=== PATIENT | female | born 1950 | race Caucasian/White ===

== ENCOUNTER 2018-08-20 11:59 | Outpatient (CLI) | payer OTHER, SELFPAY ==
[2018-08-20 13:00] LABS: HCT 41.2 % (36.0-46.0); Mean Corp. HGB Concentration 31.6 g/dL (32.0-36.0); Mean Corpuscular Hemoglobin 28.1 pg (27.0-33.0); Mean Corpuscular Volume 89.2 fL (80-95); Mean Platelet Volume 9.5 fL (8.0-11.0); Platelet Count 460 x1000/uL (130-400); RBC 4.62 m/cumm (4.00-5.20); White Blood Cell Count 6.26 k/cumm (4.4-10.8)
[2018-08-20 13:40] LABS: ALT 27 U/L (12-78); AST 19 U/L (15-37); Albumin 3.9 g/dL (3.4-5.0); Alkaline Phosphatase 127 U/L (46-116); Anion Gap 11.3 mmol/L (3-11); BUN 11 mg/dL (7-18); Bilirubin, Total 0.3 mg/dL (0.2-1.0); CO2 27.7 mmol/L (21.0-32.0); CREATININE 0.69 mg/dL (0.55-1.02); Calcium 9.4 mg/dL (8.5-10.1); Chloride 104 mmol/L (98-107); Glucose 90 mg/dL (70-100); Potassium 4.3 mmol/L (3.5-5.1); Sodium 143 mmol/L (136-145); TSH (W/Ref FT4) 2.36 uIU/mL (0.358-3.74); Total Protein 7.4 g/dL (6.4-8.2)
[2018-08-21 20:00] LABS: Cholesterol 281 mg/dL (50-200); HDL Cholesterol 58 mg/dL (40-60); LDL CHOLESTEROL 203 mg/dL (<100); Triglyceride 92 mg/dL (30-150)
== END 2018-08-20 12:19 ==
PROVIDERS: PCP Nurse Practitioner; Visit Provider Nurse Practitioner
DX: E05.90 Thyrotoxicosis, unspecified without thyrotoxic crisis or storm (principal); I10 Essential (primary) hypertension; E78.5 Hyperlipidemia, unspecified
CPT/HCPCS: 36415; 80053; 80061; 83721; 85027; 84443

== ENCOUNTER 2018-10-10 00:50 | Outpatient (CLI) | payer OTHER, SELFPAY ==
--- NOTE | 2018-10-10 11:00 | DI.MAMMO_ITS ---
SYMPTOMS/DIAGNOSIS: SCREENING, Z12.31 MAMMOGRAM: Mammograms were interpreted according to the usual protocol including computer analysis with CAD system, tomosynthesis and C view imaging. Comparison with prior examinations. Breast density C. There are post surgical changes of a left breast biopsy. No suspicious masses or microcalcifications are seen. Overall there does not appear to be any significant change compared to the prior examinations. IMPRESSION: No evidence for malignancy. Yearly mammography is recommended. Category 2. MQSA ASSESSMENT OF FINDINGS: Negative with benign findings. Category 2. Patient will receive a letter notifying them of these results. Bi-RADS category C. The breasts are heterogeneously dense, which may obscure small masses.
== END 2018-10-10 01:10 ==
PROVIDERS: PCP Nurse Practitioner; Visit Provider Nurse Practitioner
DX: Z12.31 Encounter for screening mammogram for malignant neoplasm of breast (principal)
CPT/HCPCS: 77063; 77067

== ENCOUNTER 2018-12-17 14:41 | Outpatient (CLI) | payer OTHER, SELFPAY ==
[2018-12-17 15:13] LABS: HCT 41.3 % (36.0-46.0); HGB 13.3 g/dL (12.0-15.5); Mean Corp. HGB Concentration 32.2 g/dL (32.0-36.0); Mean Corpuscular Hemoglobin 27.8 pg (27.0-33.0); Mean Corpuscular Volume 86.4 fL (80-95); Mean Platelet Volume 8.9 fL (8.0-11.0); Platelet Count 515 x1000/uL (130-400); RBC 4.78 m/cumm (4.00-5.20); RBC Distribution Width 14.6 % (11.7-14.6); White Blood Cell Count 6.73 k/cumm (4.4-10.8)
[2018-12-17 16:39] LABS: ESR 63 MM/HR (0-30)
[2018-12-17 16:43] LABS: ALT 23 U/L (12-78); AST 22 U/L (15-37); Albumin 3.7 g/dL (3.4-5.0); Alkaline Phosphatase 118 U/L (46-116); Anion Gap 11.9 mmol/L (3-11); BUN 12 mg/dL (7-18); Bilirubin, Total 0.3 mg/dL (0.2-1.0); CO2 28.1 mmol/L (21.0-32.0); CREATININE 0.86 mg/dL (0.55-1.02); Calcium 9.9 mg/dL (8.5-10.1); Chloride 99 mmol/L (98-107); Cholesterol 182 mg/dL (50-200); Glucose 99 mg/dL (70-100); HDL Cholesterol 55 mg/dL (40-60); LDL CHOLESTEROL 111 mg/dL (<100); Potassium 3.3 mmol/L (3.5-5.1); Sodium 139 mmol/L (136-145); TSH (W/Ref FT4) 1.89 uIU/mL (0.358-3.74); Total Protein 7.6 g/dL (6.4-8.2); Triglyceride 76 mg/dL (30-150)
[2018-12-17 17:15] LABS: C-Reactive Protein 4.69 mg/dL (0.0-0.3)
== END 2018-12-17 15:01 ==
PROVIDERS: PCP Nurse Practitioner; Visit Provider Nurse Practitioner
DX: E05.90 Thyrotoxicosis, unspecified without thyrotoxic crisis or storm (principal); R19.7 Diarrhea, unspecified; K51.90 Ulcerative colitis, unspecified, without complications; I10 Essential (primary) hypertension; E78.5 Hyperlipidemia, unspecified
CPT/HCPCS: 36415; 80053; 80061; 83721; 85027; 85652; 84443; 86140

== ENCOUNTER 2018-12-18 08:12 | Outpatient (CLI) | payer OTHER, SELFPAY ==
--- NOTE | 2018-12-18 12:12 | DI.CT_ITS ---
SYMPTOMS/DIAGNOSIS: PAIN, DIARRHEA, ULCERATIVE COLITIS, R19.7, R10.9, K51.90 CT OF THE ABDOMEN AND PELVIS: There are no prior comparison exams. Images were performed from the lung bases through the ischial tuberosities after IV and oral contrast. There is a mild pectus excavatum deformity. The heart size is normal. Mild emphysematous changes and scarring are noted at the lung bases. There is wall thickening of the terminal ileum, which may represent Crohn's disease. The appendix appears normal. The colon contains contrast up to the hepatic flexure. The remaining colon appears somewhat fluid filled. No colonic wall thickening is seen. There are enlarged right lower quadrant lymph nodes, presumably reactive. There is a tiny liver cyst. The gallbladder, spleen, adrenals, pancreas and kidneys are unremarkable. The urinary bladder is nearly empty. The uterus and ovaries are unremarkable. Degenerative changes and scoliosis are seen in the spine. The aorta shows calcification and is normal in diameter. IMPRESSION: Edema in the wall of the terminal ileum, which could be secondary to inflammatory or infectious causes. There is no wall thickening involving the colon, although the colon is fluid filled.
[2018-12-18] MEDS: Omnipaque 350 MG/ML 100 ML BTL IJ (13:37)
== END 2018-12-18 08:32 ==
PROVIDERS: PCP Nurse Practitioner; Visit Provider Nurse Practitioner
DX: R10.9 Unspecified abdominal pain (principal); R19.7 Diarrhea, unspecified; K51.80 Other ulcerative colitis without complications; K63.89 Other specified diseases of intestine
CPT/HCPCS: 74177; J3490

== ENCOUNTER 2019-07-16 00:38 | Outpatient (CLI) | payer OTHER, SELFPAY ==
--- NOTE | 2019-07-16 11:22 | DI.RAD_ITS ---
EXAM: XR KNEE RT 3V AP,LAT,FRANNY INDICATION: INFLAMMATORY ARTHROPATHY M19.90. COMPARISON: XR KNEE LT 3V AP,LAT,FRANNY from 07/16/2019 TECHNIQUE: 2D digital imaging was performed. FINDINGS: The bony structures are normally mineralized. There is mild narrowing of the medial tibiofemoral join t compartment and mild periarticular bony spurring is identified. There is no evidence of a joint ef fusion. IMPRESSION: Mild bilateral DJD is noted.
--- NOTE | 2019-07-16 11:22 | DI.RAD_ITS ---
EXAM: XR KNEE LT 3V AP,LAT,FRANNY INDICATION: INFLAMMATORY ARTHROPATHY M19.90. COMPARISON: No exams were available for comparison TECHNIQUE: 2D digital imaging was performed. FINDINGS: The bony structures are normally mineralized. Minimal narrowing of the medial tibiofemoral joint is e vident and very mild periarticular spurring is identified. There is no evidence of a joint effusion. IMPRESSION: Findings consistent with mild DJD.
--- NOTE | 2019-07-16 11:24 | DI.RAD_ITS ---
EXAM: XR ARTHRITIS SERIES INDICATION: INFLAMMATORY ARTHROPATHY M19.90. COMPARISON: No exams were available for comparison TECHNIQUE: 2D digital imaging was performed. FINDINGS: The bony structures are normally mineralized. Severe DJD is noted involving the interphalangeal join ts bilaterally. There are no bony erosions or periarticular calcifications. The carpal bones and in tercarpal joints are intact bilaterally. IMPRESSION: Severe degenerative changes involving the interphalangeal joints is demonstrated. There is nothing specific on the examination to suggest inflammatory joint disease.
--- NOTE | 2019-07-16 11:49 | DI.RAD_ITS ---
EXAM: XR SACROILIAC JOINTS INDICATION: INFLAMMATORY ARTHROPATHY M19.90, OSTEOARTHRITIS. COMPARISON: No exams were available for comparison TECHNIQUE: 2D digital imaging was performed. FINDINGS: Aside from mild degenerative changes the SI joints appear intact.
--- NOTE | 2019-07-16 11:50 | DI.RAD_ITS ---
EXAM: XR LUMBAR SPINE COMPLETE INDICATION: INFLAMMATORY ARTHROPATHY M19.90. COMPARISON: No exams were available for comparison TECHNIQUE: 2D digital imaging was performed. FINDINGS: A moderate levo roto scoliotic deformity of the lumbar spine is demonstrated. T11-T12 and T12-L1 dis c narrowing is demonstrated. There are mild endplate hypertrophic changes. Also there is narrowing o f the L3-4 and L4-5 disc interspace with a vacuum phenomenon identified at L4-5. Prominent hypertrop hic spurring involving the L4-5 level is identified. Facet joint DJD is most advanced at L3 through S1. There is no evidence of spondylolysis or spondylo listhesis. The pedicles, spinous and transvers e processes appear intact. The SI joints are intact. IMPRESSION: Degenerative changes involving the lumbosacral spine as described above.
== END 2019-07-16 00:58 ==
PROVIDERS: PCP Nurse Practitioner; Visit Provider Internal Medicine
DX: M19.90 Unspecified osteoarthritis, unspecified site (principal); M53.3 Sacrococcygeal disorders, not elsewhere classified; M19.049 Primary osteoarthritis, unspecified hand; M54.5 Low back pain; M51.37 Other intervertebral disc degeneration, lumbosacral region; M25.562 Pain in left knee; M17.0 Bilateral primary osteoarthritis of knee; M25.561 Pain in right knee
CPT/HCPCS: 73562; 72110; 72202; 73120

== ENCOUNTER 2019-09-30 11:41 | Outpatient (CLI) | payer OTHER, SELFPAY ==
[2019-09-30 12:28] LABS: HCT 43.4 % (36.0-46.0); HGB 14.2 g/dL (12.0-15.5); Mean Corp. HGB Concentration 32.7 g/dL (32.0-36.0); Mean Corpuscular Hemoglobin 30.5 pg (27.0-33.0); Mean Corpuscular Volume 93.3 fL (80-95); Mean Platelet Volume 9.1 fL (8.0-11.0); Platelet Count 456 x1000/uL (130-400); RBC 4.65 m/cumm (4.00-5.20); RBC Distribution Width 13.6 % (11.7-14.6); White Blood Cell Count 6.29 k/cumm (4.4-10.8)
[2019-09-30 13:18] LABS: ALT 29 U/L (14-59); AST 15 U/L (15-37); Albumin 4.1 g/dL (3.4-5.0); Alkaline Phosphatase 94 U/L (46-116); Anion Gap 8.1 mmol/L (3-11); BUN 14 mg/dL (7-18); Bilirubin, Total 0.4 mg/dL (0.2-1.0); CO2 28.9 mmol/L (21.0-32.0); CREATININE 0.66 mg/dL (0.55-1.02); Calcium 9.2 mg/dL (8.5-10.1); Calculated LDL 173 mg/dL; Chloride 106 mmol/L (98-107); Cholesterol 248 mg/dL (<200); Glucose 89 mg/dL (74-106); HDL Cholesterol 56 mg/dL (40-60); Potassium 4.4 mmol/L (3.5-5.1); Sodium 143 mmol/L (136-145); TSH (W/Ref FT4) 1.93 uIU/mL (0.36-3.74); Total Protein 7.4 g/dL (6.4-8.2); Triglyceride 99 mg/dL (<150)
== END 2019-09-30 12:01 ==
PROVIDERS: PCP Nurse Practitioner; Visit Provider Nurse Practitioner
DX: D47.3 Essential (hemorrhagic) thrombocythemia (principal); E78.5 Hyperlipidemia, unspecified; I10 Essential (primary) hypertension; E05.90 Thyrotoxicosis, unspecified without thyrotoxic crisis or storm
CPT/HCPCS: 36415; 80053; 80061; 85027; 84443

== ENCOUNTER 2019-10-21 00:43 | Outpatient (CLI) | payer OTHER, SELFPAY ==
--- NOTE | 2019-10-21 12:52 | DI.MAMMO_ITS ---
EXAM: MAMMO SCREENING CLINICAL HISTORY: SCREENING Z12.39 TECHNIQUE: Mammograms were interpreted according to the usual protocol including computer analysis w [employer] CAD system, tomosynthesis and C-view imaging. COMPARISON: 2013 through 2018 FINDINGS: The breasts are composed of heterogeneously dense fibroglandular densities, Breast Density category C . No suspicious masses or suspicious microcalcifications are seen. Post biopsy scarring is again noted in the left breast. No skin thickening or abnormal axillary lymph nodes are seen. There has been no significant change from prior exams. IMPRESSION: BIRADS category 2 negative mammogram with benign findings. Yearly screening mammography is recommend ed. BI-RADS Cat 2 - Benign Findings Breast Density - Category C - Heterogeneously dense BREAST DENSITY: The mammogram demonstrates the patient's breast tissue is dense. Dense breast tissue is very common and is not abnormal but dense breast tissue can make it harder to find cancer on a ma mmogram. Also, dense breast tissue may increase their breast cancer risk. This information about the result of the mammogram report was provided to the patient to raise their awareness. Use this report when you speak with the patient about their risks for breast cancer, which includes their family hist ory. At that time, you may recommend for more screening tests (Ultrasound or MRI) as they might be us eful based on their risk. A negative radiographic report should not delay biopsy if a dominant or clinically suspicious mass is present. Up to ten percent of cancers are not identified on mammography. A negative report may reinforce clinical impression. Adenosis and dense breasts may obscure an underlying neoplasm. False positive reports average 6 to 10%.
== END 2019-10-21 01:03 ==
PROVIDERS: PCP Nurse Practitioner; Visit Provider Nurse Practitioner
DX: Z12.31 Encounter for screening mammogram for malignant neoplasm of breast (principal)
CPT/HCPCS: 77063; 77067

== ENCOUNTER 2020-04-01 01:29 | Outpatient (CLI) | payer OTHER, SELFPAY ==
[2020-04-01 10:54] LABS: HCT 43.3 % (36.0-46.0); HGB 14.3 g/dL (12.0-15.5); Mean Corpuscular Hemoglobin 30.8 pg (27.0-33.0); Mean Corpuscular Volume 93.1 fL (80-95); Mean Platelet Volume 9.1 fL (8.0-11.0); Platelet Count 422 x1000/uL (130-400); RBC 4.65 m/cumm (4.00-5.20); RBC Distribution Width 13.9 % (11.7-14.6); White Blood Cell Count 6.01 k/cumm (4.4-10.8)
[2020-04-01 11:48] LABS: ALT 47 U/L (14-59); AST 26 U/L (15-37); Albumin 4.1 g/dL (3.4-5.0); Alkaline Phosphatase 95 U/L (46-116); Anion Gap 8.3 mmol/L (3-11); BUN 14 mg/dL (7-18); Bilirubin, Total 0.3 mg/dL (0.2-1.0); CO2 25.7 mmol/L (21.0-32.0); CREATININE 0.71 mg/dL (0.55-1.02); Calcium 9.6 mg/dL (8.5-10.1); Calculated LDL 162 mg/dL (<100); Chloride 105 mmol/L (98-107); Cholesterol 233 mg/dL (<200); Glucose 98 mg/dL (74-106); HDL Cholesterol 49 mg/dL (40-60); Potassium 4.4 mmol/L (3.5-5.1); Sodium 139 mmol/L (136-145); Total Protein 7.2 g/dL (6.4-8.2); Triglyceride 113 mg/dL (<150)
[2020-04-01 12:00] LABS: TSH (W/Ref FT4) 1.38 uIU/mL (0.36-3.74)
== END 2020-04-01 01:49 ==
PROVIDERS: PCP Nurse Practitioner; Visit Provider Nurse Practitioner
DX: E05.90 Thyrotoxicosis, unspecified without thyrotoxic crisis or storm (principal); I10 Essential (primary) hypertension; R53.83 Other fatigue; E78.5 Hyperlipidemia, unspecified
CPT/HCPCS: 36415; 80053; 80061; 85027; 84443

== ENCOUNTER 2020-11-19 03:48 | Outpatient (CLI) | payer OTHER, SELFPAY ==
--- NOTE | 2020-11-19 12:54 | DI.MAMMO_ITS ---
EXAM: MAMMO SCREENING CLINICAL HISTORY: screening,Z12.39 TECHNIQUE: Mammograms were interpreted according to the usual protocol including computer analysis w [employer] CAD system, tomosynthesis and C-view imaging. COMPARISON: 2013 through 2019 FINDINGS: The breasts are composed of heterogeneously dense fibroglandular densities, Breast Density category C . No suspicious masses or suspicious microcalcifications are seen. No skin thickening or abnormal axillary lymph nodes are seen. Scarring is again noted in the superio r left breast from previous biopsy. There has been no significant change from prior exams. IMPRESSION: BI-RADS Cat 2 - Benign Findings Yearly screening mammography is recommended. Breast Density Category C, heterogeneously Dense. The mammogram demonstrates the patient's breast tissue is dense. Dense breast tissue is very common a nd is not abnormal but dense breast tissue can make it harder to find cancer on a mammogram. Also, de nse breast tissue may increase breast cancer risk. This information about the result of the mammogram report was provided to the patient to raise their awareness. Use this report when you speak with the patient about their risks for breast cancer, which includes their family history. At that time, you may recommend additional screening tests (Ultrasound or MRI) as they might be useful based on their r isk. A negative radiographic report should not delay biopsy if a dominant or clinically suspicious mass is present. Up to ten percent of cancers are not identified on mammography. A negative report may reinforce clinical impression. Adenosis and dense breasts may obscure an underlying neoplasm. False positive reports average 6 to 10%.
== END 2020-11-19 04:08 ==
PROVIDERS: PCP Internal Medicine; Visit Provider Internal Medicine
DX: Z12.31 Encounter for screening mammogram for malignant neoplasm of breast (principal)
CPT/HCPCS: 77063; 77067

== ENCOUNTER 2021-02-22 02:47 | Outpatient (CLI) | payer OTHER, SELFPAY ==
[2021-02-22 12:40] LABS: Absolute Basophil Count 0.07 10^3/uL (0.0-0.2); Absolute Eosinophil Count 0.31 10^3/uL (0.0-0.7); Absolute Lymphocyte Count 1.31 10^3/uL (1.2-3.4); Absolute Monocyte Count 0.54 10^3/uL (0.1-0.8); Absolute Neutrophil Count 3.31 10^3/uL (1.2-6.7); Basophils % 1.3; Eosinophils % 5.6; HCT 42.4 % (36.0-46.0); HGB 13.6 g/dL (11.2-15.7); Lymphocytes % 23.6; MCH 29.5 pg (27.0-33.0); MCHC 32.1 % (32.0-36.0); MPV 10.1 fL (8.0-11.0); Monocytes % 9.7; Neutrophils % 59.8; Nucleated RBC 0 %; Platelet Count 426 10^3/uL (130-400); RBC 4.61 10^6/uL (3.93-5.22); RDW 13.7 % (11.7-14.6); RDW-SD 46.5 fL; WBC 5.54 10^3/uL (4.4-10.8)
[2021-02-22 12:45] LABS: ESR 30 mm/hr (0-30)
[2021-02-22 13:03] LABS: ALT 34 U/L (14-59); AST 15 U/L (15-37); Alkaline Phosphatase 99 U/L (46-116); Anion Gap 10.1 mmol/L (3-11); BUN 16 mg/dL (7-18); Bilirubin, Total 0.3 mg/dL (0.2-1.0); CO2 26.9 mmol/L (21.0-32.0); CREATININE 0.8 mg/dL (0.55-1.02); Calcium 9.3 mg/dL (8.5-10.1); Calculated LDL 163 mg/dL (<100); Chloride 106 mmol/L (98-107); Cholesterol 241 mg/dL (<200); Glucose 95 mg/dL (74-106); HDL Cholesterol 52 mg/dL (40-60); Potassium 4.4 mmol/L (3.5-5.1); Sodium 143 mmol/L (136-145); TSH 1.36 uIU/mL (0.36-3.74); Total Protein 7.5 g/dL (6.4-8.2); Triglyceride 134 mg/dL (<150)
[2021-02-22 13:20] LABS: FREE T4 0.83 ng/dL (0.76-1.46)
== END 2021-02-22 02:48 | disposition home or self-care (01) ==
LOC: LOS 02:47
PROVIDERS: PCP Nurse Practitioner Family; Visit Provider Nurse Practitioner Family
DX: R51.9 Headache, unspecified (principal); R53.83 Other fatigue; E78.5 Hyperlipidemia, unspecified; E05.90 Thyrotoxicosis, unspecified without thyrotoxic crisis or storm
CPT/HCPCS: 36415; 80053; 80061; 85652; 84439; 84443; 85025; 86140

== ENCOUNTER 2021-04-06 02:02 | Outpatient (CLI) | payer OTHER, SELFPAY ==
--- NOTE | 2021-04-06 08:00 | DI.DEXA_ITS ---
Exam(s) XR DEXA BONE DENSITY W/WO TUTU EXAM: XR DEXA BONE DENSITY W/WO TUTU CLINICAL HISTORY: reassess bone density,OSTEOPOROSIS, M81.0 TECHNIQUE: Routine DEXA evaluation of the lumbar spine, hip, or forearm. COMPARISON: CR XR LUMBAR SPINE COMPLETE from 07/16/2019 FINDINGS: Performed on a Hologic unit. Lateral image: No compression fracture evident. Lumbar Spine total T-score: -0.4 Hip total T-score:-1.4 Independent reading at the level of the femoral neck yields a T-score of -2.0 Forearm total T-score: -0.8 IMPRESSION: Bone mineral density measures in the osteopenia range. Fracture risk is moderate. Note: Any spine fracture indicates 5x risk for subsequent spine fracture and 2x risk for subsequent h ip fracture. World Health Organization criteria for BMD interpretation classify patients: Normal...... T- Score at or above -1.0 Osteopenic... T- Score between -1.0 and -2.5 Osteoporosis... T-Score at or below -2.5
== END 2021-04-06 02:22 ==
PROVIDERS: PCP Nurse Practitioner Family; Visit Provider Nurse Practitioner Family
DX: R93.7 Abnormal findings on diagnostic imaging of other parts of musculoskeletal system; M81.0 Age-related osteoporosis without current pathological fracture
CPT/HCPCS: 77080

== ENCOUNTER 2021-12-08 18:22 | Outpatient (REF) | payer MEDICARE, SELFPAY ==
[2021-12-08 14:56] LABS: Abs Immature Grans 0.01 10^3/uL (0.0-0.06); Absolute Basophil Count 0.08 10^3/uL (0.0-0.2); Absolute Eosinophil Count 0.21 10^3/uL (0.0-0.7); Absolute Lymphocyte Count 1.19 10^3/uL (1.2-3.4); Absolute Monocyte Count 0.58 10^3/uL (0.1-0.8); Absolute Neutrophil Count 3.85 10^3/uL (1.2-6.7); Basophils % 1.4; Eosinophils % 3.5; HCT 43.2 % (36.0-46.0); HGB 13.7 g/dL (11.2-15.7); Immature Grans % 0.2; Lymphocytes % 20.1; MCH 28.9 pg (27.0-33.0); MCHC 31.7 % (32.0-36.0); MCV 91.1 fL (80-95); MPV 9.9 fL (8.0-11.0); Monocytes % 9.8; Nucleated RBC 0 %; Platelet Count 471 10^3/uL (130-400); RBC 4.74 10^6/uL (3.93-5.22); RDW 14.4 % (11.7-14.6); RDW-SD 48.4 fL; WBC 5.92 10^3/uL (4.4-10.8)
[2021-12-08 15:55] LABS: TSH 1.37 uIU/mL (0.36-3.74); Total Iron Binding Capacity 298 ug/dL (250-450)
[2021-12-08 16:35] LABS: Iron 73 ug/dL (50-170); T4 6.2 ug/mL (4.7-13.3); Transferrin Sat 24 % (15-50)
[2021-12-08 22:02] LABS: T3, Total 128 ng/dL (97-169)
== END 2021-12-08 18:23 | disposition home or self-care (01) ==
LOC: NCHCN 18:22
PROVIDERS: Visit Provider Nurse Practitioner Family
DX: E05.00 Thyrotoxicosis with diffuse goiter without thyrotoxic crisis or storm (principal); D47.3 Essential (hemorrhagic) thrombocythemia; G43.909 Migraine, unspecified, not intractable, without status migrainosus
CPT/HCPCS: 85027; 83540; 83550; 84436; 84443; 84480; 85025

== ENCOUNTER 2022-03-04 11:09 | Emergency (ER) | payer MEDICARE, SELFPAY ==
[2022-03-04 11:29] VITALS: BP 125/78; PULSE 80; RESP 16; TEMP 36.6; O2SAT 97
--- NOTE | 2022-03-04 12:00 | DI.CT_ITS ---
Exam(s) CT LUMBAR SPINE RECONS CT ABDOMEN PELVIS WO EXAM: CT ABDOMEN PELVIS WO CLINICAL HISTORY: abdominal pain and back pain. TECHNIQUE: Imaging Protocol: Axial computed tomography images with coronal and sagittal reformatted images were created and reviewed. Axial, coronal and sagittal images of the lumbar spine were reconstructed in bone algorithm. Oral: no COMPARISON: CT CT ABDOMEN PELVIS W from 12/18/[address] LUMBAR SPINE RECONS from 03/04/2022 FINDINGS: ABDOMEN: Lung Bases: Normal where visualized. Liver: Normal density. Stable tiny cyst right lobe no suspicious mass. Gallbladder and biliary tract: Status post cholecystectomy. No radiodense calculus or dilation. Pancreas: Normal density, no abnormal calcifications or inflammatory process. Spleen: Normal. Kidneys: Normal size, contour and axis. No radiodense stones or obstructive uropathy. No masses seen. Adrenal glands: No masses seen. Lymph nodes: Multiple abnormally enlarged retroperitoneal lymph nodes with a nearly confluent appeara nce extending from the diaphragm to the level of the proximal iliac chains.. Mildly enlarged mesente iliana lymph nodes are also present, greatest in the right lower quadrant.. Abdominal Aorta: Abdominal portion non-dilated. PELVIS: Bladder: Nearly empty and not well evaluated.. Bowel: No obstruction or bowel wall thickening. Peritoneal cavity: No ascites, collection or mesenteric inflammatory response. Reproductive organs: Within normal limits. Bones: The bones appear generally osteopenic. There is no evidence of compression fracture minimal S chmorl's nodes are seen. Degenerative disc changes greatest at L4-5, eccentric toward the right. Fa cet degenerative changes greatest at L5-S1. No lytic or blastic lesions. IMPRESSION: Extensive retroperitoneal adenopathy, highly suspicious for lymphoma. There also mildly enlarged mes enteric nodes greatest in the right lower quadrant. Degenerative changes are noted in the lumbar spine. There is no evidence of compression fractures, l ytic or blastic lesions. RADIATION DOSE DELIVERED: 947.63 mGy.cm Total DLP DATA REPOSITORY: All CT scans at this facility are submitted to the National Radiology Data Registry (NRDR) Dose Index Registry (DIR) with the [employer] (ACR). RADIATION OPTIMIZATION: All CT scans at this facility use at least one of these dose optimization te chniques: automated exposure control; mA and/or kV adjustment per patient size (includes targeted exa ms where dose is matched to clinical indication); or iterative reconstruction.
--- NOTE | 2022-03-04 12:13 | W.ED.GENAD ---
Discharge Plan Disposition Patient Disposition: HOME Condition: Stable Discharge Details Clinical Impression: Abdominal pain, Back pain, Enlarged lymph nodes, unspecified Primary Care Provider: MILA STERLING ED Provider: Domenico Ch Home Meds and New Rx's Prescriptions: Continued Ca-D3-mag rg-vhmq-ntx-jalil-bor [Calcium 600-D3 Plus (mag-zinc)] 600 mg calcium- 800 unit-50 mg tablet PO BID vitamin d 3 125 mg PO QDAY ezetimibe [Zetia] 10 mg tablet 10 mg PO DAILY Qty: 90 3RF gabapentin 300 mg capsule 300 mg PO TID PRN rosuvastatin 5 mg tablet 5 mg PO DAILY Qty: 90 4RF methimazole 5 mg tablet 5 mg PO DAILY Qty: 90 4RF escitalopram oxalate [Lexapro] 20 mg tablet 20 mg PO DAILY Qty: 90 4RF multivitamin tablet 1 tab PO DAILY meclizine 25 mg tablet 25 mg PO DAILY PRN vitamin B complex [B Complex 1] tablet 1 tab PO DAILY meloxicam 15 mg tablet 15 mg PO DAILY PRN (Reason: pain) Qty: 90 1RF topiramate 50 mg tablet 50 mg PO QHS Qty: 90 0RF Discharge Instructions Additional Instructions: Your cat scans did not show any emergent findings such as appendicitis or a bowel blockage. It did show you have enlarged lymph nodes in the abdomen that could be related to the diarrhea issues you have been having. Follow up as scheduled with the yarding engineer and also your primary care provider and inform them of the enlarged lymph nodes in your abdomen. You may need to see a hand presser for this if you feel more ill, have severe worsening pain or persistent vomit return to the emergency department you can take 1000mg tylenol every 6 hours up to 3000mg in a 24 hour period. The dosing for ibuprofen is 600mg every 6 hours as needed Medical Decision Making 71 yo female with hx of hld, hyperthyroidism, comes in with cc of abdominal discomfort for 5 days. She states she has had months of loose stools and is scheduled to see a yarding engineer this month for this issue. She states for 5 days she has a cramping sensation in her abdomen and sometimes discomfort in the lower back. She denies fevers, chills, chest pain, dyspnea, n/v. She appears well on exam, caox4 speaking clearly. She has tenderness without guarding in the mid and left lower abdomen and abdomen is soft. She has no cva tenderness, no rashes, no erythema of the back. No saddle anesthesia, normal sensation and pulses in legs. Her symptoms could be from gastroenteritis vs gastritis, no findings on exam or history to suggest cauda equina or spinal epidural abscess. She has normal vascular exam and history and physical makes entities such as dissection unlikely and given the IV contrast shortage do not feel IV contrast indicated and no severe pain to suggest mesenteric ischemia. Will obtain ct abdomen/pelvis to evaluate for diverituclitis and less likely kidney stone and recons of the lumbar spine given the back pain as well labs show no acute findings, has chronic thrombophilia and has seen hematology for this. CT shows no emergent findings, has nonspecific lymph node enlargement which could be from lymphoproliferative disease but also has had diarrhea so could be related to this. She is stable, minimal llq tenderness no guarding or rebound. Discussed with pt and she is stable for d/c. Did advise she should follow up with her pcp and GI which she has appointments for this month already. Return precautions given Differential Diagnosis Differential Diagnosis: diverituclitis, food sensitivity, kidney stone Medical Records Medical records reviewed: Yes I reviewed the patient's medical records. Imaging Data Radiologic Study: Attestation: I personally reviewed and interpreted this imaging study as follows: Imaging: CT Scan Radiologist's impression: ct abdomen/pelvis IMPRESSION: Retroperitoneal and mesenteric lymphadenopathy of concern for potential lymphoproliferative disease. Radiologic Study #2: Attestation: I personally reviewed and interpreted this imaging study as follows: Imaging: CT Scan Radiologist's impression: PROCEDURE INFORMATION: Exam: CT Lumbar Spine Without Contrast Exam date and time: 03/04/2022 12:42 PM Age: 71 years old Clinical indication: Low back pain TECHNIQUE: Imaging protocol: Computed tomography images of the lumbar spine without contrast. COMPARISON: CR XR LUMBAR SPINE COMPLETE 16/07/2019 11:27 FINDINGS: Bones/joints: Her lumbar vertebrae are all normal in height and alignment with no compression deformity. Schmorl's nodes are present in the endplates at multiple levels. Discs/Spinal canal/Neural foramina: There is a small disc bulge at L4-L5. No stenosis is seen. Other levels appear preserved. No severe spinal canal stenosis. No significant neural foraminal narrowing. Soft tissues: Unremarkable. IMPRESSION: No acute findings. Lab Data Lab results reviewed: Yes I reviewed the patient's lab results. HPI General Mode of arrival: ambulatory. Date/Time Provider Initiated Documentation: 03/04/22 11:13. Limitations to Documentation: no limitations. Information obtained by: patient. History of Present Illness 71 year old F presents to the emergency department with the chief complaint of generalized abdominal pain , described as moderate, Patient started experiencing this day(s) (5) and it has been constant. No relieving factors improve symptom(s), No exacerbating factors reported . Patient notes other (diarrhea for months, lower back pain). Patient did receive the following treatments prior to arrival, none Related Data Home Medications Medication Instructions Recorded Confirmed meclizine 25 mg tablet 25 mg PO DAILY PRN 07/31/18 08/22/21 multivitamin 1 tab PO DAILY 07/31/18 08/22/21 vitamin B complex (B Complex 1 1 tab PO DAILY 07/31/18 03/04/22 tablet) ezetimibe 10 mg tablet (Zetia) 10 mg PO DAILY #90 tabs 03/25/20 08/22/21 Ca 600 mg-D3 20 mcg-mag oxide 50 tab PO BID 08/11/20 08/22/21 dz-Gz-piqyvw-manganese-boron tablet (Calcium 600-D3 Plus (mag-zinc)) vitamin d 3 125 mg PO QDAY 08/11/20 08/22/21 gabapentin 300 mg capsule 300 mg PO TID PRN 02/22/21 03/04/22 escitalopram oxalate 20 mg tablet 20 mg PO DAILY #90 tabs 03/24/21 03/04/22 (Lexapro) methimazole 5 mg tablet 5 mg PO DAILY #90 tabs 03/24/21 03/04/22 rosuvastatin 5 mg tablet 5 mg PO DAILY #90 tabs 03/24/21 03/04/22 meloxicam 15 mg tablet 15 mg PO DAILY PRN pain #90 tabs 07/08/21 03/04/22 topiramate 50 mg tablet 50 mg PO QHS #90 tabs 08/31/21 03/04/22 Previous Rx's Medication Instructions Recorded ezetimibe 10 mg tablet (Zetia) 10 mg PO DAILY #90 tabs 03/25/20 escitalopram oxalate 20 mg tablet 20 mg PO DAILY #90 tabs 03/24/21 (Lexapro) methimazole 5 mg tablet 5 mg PO DAILY #90 tabs 03/24/21 rosuvastatin 5 mg tablet 5 mg PO DAILY #90 tabs 03/24/21 meloxicam 15 mg tablet 15 mg PO DAILY PRN pain #90 tabs 07/08/21 topiramate 50 mg tablet 50 mg PO QHS #90 tabs 08/31/21 Allergies Allergy/AdvReac Type Severity Reaction Status Date / Time No Known Allergies Allergy Verified 03/04/22 11:35 General Stated Complaint: Abd Prob MAURI: 3 Review of Systems All systems reviewed & are unremarkable except as noted in HPI and below Constitutional Constitutional: Denies chills, Denies fever(s) and Denies weakness Cardiovascular Cardiovascular: Denies chest pain and Denies dyspnea Respiratory Respiratory: Denies cough and Denies dyspnea Gastrointestinal Gastrointestinal: Denies nausea and Denies vomiting Genitourinary Genitourinary: Denies dysuria Integumentary/Breasts Skin/Breast: Denies rash Neurologic Neurologic: Denies weakness [facility] All Active Problems (Updated 03/04/22 @ 13:40 by Domenico Ch MD) Abdominal pain (Acute) Back pain (Acute) Enlarged lymph nodes, unspecified (Acute) Chronic daily headache (Acute) Osteopenia (Chronic) Dexa 03/2021 Hyperthyroidism (Chronic) Hyperlipidemia (Chronic) Thrombocytosis (Chronic) [facility] Hematology Fatigue (Chronic) Primary generalized (osteo)arthritis (Chronic) No rheumatologic disorder per [facility] Rheumatology Functional diarrhea (Chronic) Collagenous colitis (Chronic) Followed by [facility] GI Major depressive disorder (Chronic) Generalized anxiety disorder (Chronic) Osteoporosis (Chronic) Active Problem List Osteopenia (Chronic) Hyperthyroidism (Chronic) Hyperlipidemia (Chronic) Thrombocytosis (Chronic) Fatigue (Chronic) Primary generalized (osteo)arthritis (Chronic) Functional diarrhea (Chronic) Collagenous colitis (Chronic) Major depressive disorder (Chronic) Generalized anxiety disorder (Chronic) Osteoporosis (Chronic) Medical History Essential hypertension History of retinal detachment Leb Opth- left post macular hole, both eyes and Lensectomy 2017 Iron deficiency anemia Left retinal detachment Macular hole of both eyes S/p surgery, OD 2014, OS 2017 Surgical History S/P excision of fibroadenoma of breast Left breast S/P right rotator cuff repair Family History Mother , at 82 Heart disease Diabetes Hypertension Breast cancer Postmenopausal Asthma Hyperlipidemia Hyperthyroidism Father , from MVA No problems noted. Sister Hyperlipidemia Hypothyroidism Sister Alcohol abuse Depression Heart disease Stroke Substance abuse Brother Hyperlipidemia Asthma Son No problems noted. Son Celiac disease Hyperthyroidism Daughter No problems noted. Maternal Grandfather No problems noted. Paternal Grandfather No problems noted. Maternal Grandmother No problems noted. Paternal Grandmother No problems noted. Social History Smoking/Tobacco Use Status: Former Tobacco Use tobacco type: cigarettes Quit Date: 09/24/13 Tobacco: How many years used: 48 Second Hand Exposure: Yes Smoking risk assessment performed?: Yes Alcohol Intake: former Drug use: Never Substance use type: does not use Household members: none Housing: apartment Number of Children: 3 Do you need help understanding health information?: Rarely Pets and animals: Yes Pets and animals: dog(s) Sexually active: No Do you think of yourself as: straight/heterosexual Current gender identity: female What is your relationship status?: How often do you talk on the phone with friends or family?: three or more times per week How often do you get together with friends or relatives?: three or more times per week How often do you attend zoroastrianism or anabaptism services?: decline to answer Do you belong to any clubs or organized social groups?: no Panel score (0-1 are the most socially isolated patients): 1 What type of physical activity do you participate in: walking and bicycling Duration: 15-30 minutes/day Frequency: 1-2 times per week Harleen/Alevism: Voodoo Special harleen needs: No Seatbelt use: always Helmet use: Yes Helmet use: always Drive intox or ride w/intox 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 Working smoke detector in home: Yes Fire extinguisher in home: Yes Carbon monox detector in home: Yes History History 3 Para 3 Hx # Term Pregnancies Multiple births Hx # Pregnancies Ectopic pregnancies AB induced Hx Number of Living Children 3 AB spontaneous Exam Const General: no acute distress Orientation: alert HENMT Head: normal to inspection Ears: external ears normal General nose exam: external nose normal Mouth: moist mucous membranes Eyes General: appearance normal, both eyes and all related structures Neck Neck: normal visual inspection Resp Effort & Inspection: normal respiratory effort and able to speak in complete sentences Cardio Rate: regular rate GI Palpation: soft, not firm, no guarding and tender Skin General skin exam: no rashes or lesions noted Neuro General: patient alert and patient oriented x3 Extrem General: normal to inspection Psych Mental Status: mental status grossly normal Course Vital Signs Vital signs: Vital Signs Temperature 36.6 C 03/04/22 11:29 Pulse 80 03/04/22 11:29 Respiratory Rate 16 03/04/22 11:29 Blood Pressure 125/78 03/04/22 11:29 Pulse Oximetry 97 03/04/22 11:29 Temperature 36.6 C 03/04/22 11:29 Pulse 80 03/04/22 11:29 Respiratory Rate 16 03/04/22 11:29 Blood Pressure 125/78 03/04/22 11:29 Pulse Oximetry 97 03/04/22 11:29 Pain Level 9 03/04/22 11:38
[2022-03-04 12:45] LABS: Abs Immature Grans 0.01 10^3/uL (0.0-0.06); Absolute Basophil Count 0.08 10^3/uL (0.0-0.2); Absolute Eosinophil Count 0.23 10^3/uL (0.0-0.7); Absolute Lymphocyte Count 1.02 10^3/uL (1.2-3.4); Absolute Monocyte Count 0.74 10^3/uL (0.1-0.8); Absolute Neutrophil Count 4.62 10^3/uL (1.2-6.7); Basophils % 1.2; Eosinophils % 3.4; HCT 40.7 % (36.0-46.0); HGB 13.2 g/dL (11.2-15.7); Immature Grans % 0.1; Lymphocytes % 15.2; MCH 29.1 pg (27.0-33.0); MCHC 32.4 % (32.0-36.0); MCV 90 fL (80-95); MPV 9.7 fL (8.0-11.0); Neutrophils % 69.1; Platelet Count 454 10^3/uL (130-400); RBC 4.53 10^6/uL (3.93-5.22); RDW 13.7 % (11.7-14.6); RDW-SD 44.7 fL
[2022-03-04 12:47] LABS: Bilirubin Negative (Negative); Blood Negative (Negative); Clarity Clear (Clear); Glucose Negative (Negative); Ketones Trace mg/dL (Negative); Leukocyte Esterase Negative (Negative); Nitrite Negative (Negative); Specific Gravity 1.025 (1.005-1.025); Urobilinogen 0.2 EU/dL (Up TO 0.2); pH 5.5 (5-8)
[2022-03-04 13:01] LABS: ALT 23 U/L (14-59); AST 25 U/L (15-37); Albumin 3.8 g/dL (3.4-5.0); Alkaline Phosphatase 103 U/L (46-116); Anion Gap 10.2 mmol/L (3-11); BUN 13 mg/dL (7-18); Bilirubin, Direct 0.1 mg/dL (0.0-0.2); Bilirubin, Total 0.3 mg/dL (0.2-1.0); CO2 23.8 mmol/L (21.0-32.0); CREATININE 0.8 mg/dL (0.55-1.02); Chloride 107 mmol/L (98-107); Glucose 122 mg/dL (74-106); Lipase 140 U/L (73-393); Magnesium 2.1 mg/dL (1.8-2.4); Potassium 3.4 mmol/L (3.5-5.1); Sodium 141 mmol/L (136-145); Total Protein 8.4 g/dL (6.4-8.2)
--- NOTE | 2022-03-04 13:16 | DI.VRAD_ITS ---
PROCEDURE INFORMATION: Exam: CT Abdomen And Pelvis Without Contrast Exam date and time: 03/04/2022 12:42 PM Age: 71 years old Clinical indication: Abdominal pain TECHNIQUE: Imaging protocol: Computed tomography of the abdomen and pelvis without contrast. COMPARISON: CT ABDOMEN PELVIS W 18/12/2018 13:21 FINDINGS: Lungs: Visualized lung bases are clear. Liver: Normal. No mass or intrahepatic biliary ductal dilatation. Gallbladder and bile ducts: The gallbladder is absent. Pancreas: Normal. No mass or ductal dilation. Spleen: Normal. No splenomegaly. Adrenal glands: Normal. No mass. Kidneys and ureters: Normal. No hydronephrosis, calculus, cyst or mass. Stomach and bowel: Unremarkable. No significant dilatation or obstruction. No mucosal thickening or visible mass. Appendix: No evidence of appendicitis. Intraperitoneal space: Unremarkable. No free air. No significant fluid collection. Vasculature: Aorta is atherosclerotic but nonaneurysmal. Lymph nodes: Numerous small mesenteric lymph nodes are present especially in the right lower quadrant but none exceed 10 mm in size. There is marked enlargement of retroperitoneal lymph nodes which measure up to about 3.7 cm. These were not present on the previous scan. Urinary bladder: No mass or wall thickening. Reproductive: Unremarkable as visualized. Bones/joints: There are degenerative changes and mild scoliosis in the lumbar spine. Soft tissues: Unremarkable. IMPRESSION: Retroperitoneal and mesenteric lymphadenopathy of concern for potential lymphoproliferative disease. Dictated and Authenticated by: Jasvir Silva MD. Ordering:LYNN Acuña MD
--- NOTE | 2022-03-04 13:18 | DI.VRAD_ITS ---
PROCEDURE INFORMATION: Exam: CT Lumbar Spine Without Contrast Exam date and time: 03/04/2022 12:42 PM Age: 71 years old Clinical indication: Low back pain TECHNIQUE: Imaging protocol: Computed tomography images of the lumbar spine without contrast. COMPARISON: CR XR LUMBAR SPINE COMPLETE 16/07/2019 11:27 FINDINGS: Bones/joints: Her lumbar vertebrae are all normal in height and alignment with no compression deformity. Schmorl's nodes are present in the endplates at multiple levels. Discs/Spinal canal/Neural foramina: There is a small disc bulge at L4-L5. No stenosis is seen. Other levels appear preserved. No severe spinal canal stenosis. No significant neural foraminal narrowing. Soft tissues: Unremarkable. IMPRESSION: No acute findings. Dictated and Authenticated by: Jasvir Silva MD. Ordering:LYNN Acuña MD
[2022-03-04] MEDS: Ketorolac 15 MG/ML VIAL IVP (13:41)
[2022-03-04 13:48] VITALS: BP 132/68; PULSE 72; RESP 16; O2SAT 99
== END 2022-03-04 13:53 | disposition home or self-care (01) ==
PROVIDERS: Emergency Provider Emergency Medicine; PCP Nurse Practitioner Family
DX: R10.84 Generalized abdominal pain (principal); M54.50 Low back pain, unspecified; R59.9 Enlarged lymph nodes, unspecified; I10 Essential (primary) hypertension
CPT/HCPCS: 36415; 80053; 83690; 96374; 99285; 74176; 81003; 82248; 83735; 85025; 99284; J1885

== ENCOUNTER → 2022-03-06 01:44 | Outpatient (CLI) | payer MEDICARE, SELFPAY ==
--- NOTE | 2022-03-06 09:05 | DI.CTLCSR_ITS ---
Exam(s) CT CHEST LUNG CANCER SCREEN EXAM: CT CHEST LUNG CANCER SCREEN CLINICAL HISTORY: FORMER SMOKER, Z87.891, QUIT 2012, LUNG CA SCREENING TECHNIQUE: Imaging Protocol: Axial computed tomography images with coronal and sagittal reformatted images were created and reviewed COMPARISON: CT CT LUMBAR SPINE RECONS from 03/04/[address] ABDOMEN PELVIS WO from 03/04/2022 FINDINGS: Tracheobronchial tree: Patent where visualized. Mediastinum and Sindy: Small mediastinal and axillary lymph nodes. No dominant adenopathy or fluid co llection. Pulmonary parenchyma: No consolidation or dominant measurable mass. Mild to moderate emphysematous ch anges, greater in the upper lobes.. Scattered areas of bilateral scarring.. Lung Nodules: None. Pleura: No effusion or pneumothorax. Heart: The heart is mildly dilated. Coronary artery calcifications are seen. Aorta: Thoracic aorta non-dilated. Mild atherosclerotic changes. Upper abdomen: Markedly enlarged retroperitoneal lymph nodes. Please see recent CT abdomen pelvis. Bones: Degenerative disc changes.. Soft Tissues: Unremarkable. IMPRESSION: Mild to moderate emphysematous changes. No suspicious pulmonary nodules. Lung RADS Cat 1 - Negative: No nodules and definitely benign nodules Lung-RADS 1.0 CATEGORIES: Category 0 - Prior chest CT exam(s) being located for comparison. Category 1 - Annual screening in 12 months. No nodules or definitely benign nodules. Category 2 - Annual screening in 12 months. Benign appearance. Nodules with low likelihood of becomin g active cancer. Category 3 - 6-month follow-up. Probably benign. Short-term follow-up suggested. Nodules with low lik elihood of becoming active cancer. Category 4A - 3-month follow-up and CT/PET if >8 mm in size. Suspicious finding. Findings which requi re additional testing. Category 4B - Findings which require additional testing and tissue sampling. Category 4X - Category 3 or 4 nodules with additional features or imaging findings that increases the suspicion of malignancy. Modifier S- Potentially clinically significant findings (non lung cancer) RADIATION DOSE DELIVERED: 72.88mGy.cm Total DLP 1.84mGy CTDIvol DATA REPOSITORY: All CT scans at this facility are submitted to the National Radiology Data Registry (NRDR) Dose Index Registry (DIR) with the [employer] (ACR). RADIATION OPTIMIZATION: All CT scans at this facility use at least one of these dose optimization te chniques: automated exposure control; mA and/or kV adjustment per patient size (includes targeted exa ms where dose is matched to clinical indication); or iterative reconstruction.
== END ==
PROVIDERS: PCP Nurse Practitioner Family; Visit Provider Nurse Practitioner Family
DX: Z12.2 Encounter for screening for malignant neoplasm of respiratory organs (principal); Z87.891 Personal history of nicotine dependence; J43.8 Other emphysema
CPT/HCPCS: 71271

== ENCOUNTER 2022-05-07 14:50 | Outpatient (REF) | payer MEDICARE, SELFPAY ==
[2022-05-07 20:16] LABS: Bilirubin Negative (Negative); Blood Negative (Negative); Clarity Cloudy (Clear); Glucose Negative (Negative); Ketones Negative (Negative); Leukocyte Esterase Moderate (Negative); Nitrite Positive (Negative); Specific Gravity 1.015 (1.005-1.025); Urobilinogen 0.2 EU/dL (Up TO 0.2)
[2022-05-07 20:25] LABS: C & S Indicated? C&S Done As Ordered; WBC >50 HPF (0-5)
== END 2022-05-07 14:51 | disposition home or self-care (01) ==
LOC: LBN 14:50
PROVIDERS: PCP Nurse Practitioner Family; Visit Provider Student in an Organized Health Care Education/Training Program
DX: R30.0 Dysuria (principal)
CPT/HCPCS: 87077; 81003; 81015; 87086; 87186

== ENCOUNTER 2022-05-08 14:41 | Inpatient (IN) | payer OTHER, SELFPAY ==
[2022-05-08 15:47] LABS: Source Nasal/Nares
[2022-05-08 16:04] VITALS: BP 169/102; PULSE 94; RESP 18; TEMP 37.5; O2SAT 93
[2022-05-08] MEDS: Normal Saline Flush 10 ML SYR IVP (16:53)
[2022-05-08] MEDS: Loperamide 2 MG CAP 4 MG PO (16:53)
[2022-05-08] MEDS: HYDROmorphone 50 MG in Normal Saline 245 ML IV (17:22)
--- NOTE | 2022-05-08 18:16 | HPE_ITS ---
Date of service: 05/08/22 Time of Service: 15:30 Assessment and Plan Assessment and plan (1) Hospice care patient: Status: Acute Assessment and plan: hospice patient, admitted 05/05/22, here for symptom management: pain, N/V/D (2) Liver metastases: Status: Acute Assessment and plan: to START hydromorphone IV 0.5mg/hr today, reassess tomorrow fentanyl patch vs CADD pump new diagnosis, at [facility]; decision for no treatment, SECURITY POLICE f/u tomorrow on paracentsesis for comfort (3) Carcinoma: Status: Acute (4) Generalized anxiety disorder: Status: Chronic Assessment and plan: continue escitalopram, w/goal of med reduction Ativan IV PRN ordered (5) Nausea & vomiting: Status: Acute Assessment and plan: improved w/scopolamine, continue scheduled promethazine and Zofran IV ordered (6) Diarrhea: Status: Acute Assessment and plan: loperamide 4mg ordered now, w/2mg for PRN [employer], no IVF (7) Restless: Status: Acute Assessment and plan: trazadone PRN ordered (8) Fatigue: Status: Chronic Qualifiers: Fatigue type: due to depression Qualified Code(s): F32.9 - Major depressive disorder, single episode, unspecified; R53.83 - Other fatigue History of Present Illness Narrative: Ms. 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; pain control recently been a struggle, was previously on morphine, ranging from 2 to 10/10 pains, was started on fentanyl 12mcg/hr TD patch on Sunday w/25mcg added yesterday; hydromorphone PO 2-4mg started evp business development, w/N/V/D sxs starting closely after; trial of ondasteron and promethazine w/no effect, V both up, pharmacy did not have IM promethazine avail, scopolamine patch started at 2p w/improvement in N/V, diarrheal sxs persist; pain worse over generalized abdominal area; family reports grimacing, groaning, restless, unable to sleep d/t discomfort; biggest goal is pain control; paracentesis was mentioned for symptom relief, would like to get pain under control today and discuss this tomorrow; [employer] form reviewed, DNR/I, [employer]; [facility], son; preference to have sxs mx and be discharged home Review of Systems Narrative: see HPI PFSH All Active Problems (Updated 05/08/22 @ 18:59 by Mari Ring NP) Hospice care patient (Acute) Restless (Acute) Diarrhea (Acute) Nausea & vomiting (Acute) Dysuria (Acute) Sent home from [facility] on ABx (completed 05/02/22, but urin burning and dysuria reported). UA [ ] Liver metastases (Acute) Per pt report: 04/25/22, [facility]: Abd mass could not be Bx. Liver was Bx. Carcinoma (Acute) Per pt report, 04/25/22 Dx @ [facility] .. Large abd mass could not be biopsied; liver Bx (?). Chronic daily headache (Acute) Osteopenia (Chronic) Dexa 03/2021 Hyperthyroidism (Chronic) Hyperlipidemia (Chronic) Thrombocytosis (Chronic) [facility] Hematology Fatigue (Chronic) Primary generalized (osteo)arthritis (Chronic) No rheumatologic disorder per [facility] Rheumatology Functional diarrhea (Chronic) Collagenous colitis (Chronic) Followed by [facility] GI Major depressive disorder (Chronic) Generalized anxiety disorder (Chronic) Osteoporosis (Chronic) Medical History Essential hypertension History of retinal detachment Leb Opth- left post macular hole, both eyes and Lensectomy 2016 Iron deficiency anemia Left retinal detachment Macular hole of both eyes S/p surgery, OD 2014, OS 2016 Surgical History S/P excision of fibroadenoma of breast Left breast S/P right rotator cuff repair Family History Mother , at 82 Heart disease Diabetes Hypertension Breast cancer Postmenopausal Asthma Hyperlipidemia Hyperthyroidism Father , from MVA No problems noted. Sister Hyperlipidemia Hypothyroidism Sister Alcohol abuse Depression Heart disease Stroke Substance abuse Brother Hyperlipidemia Asthma Son No problems noted. Son Celiac disease Hyperthyroidism Daughter No problems noted. Maternal Grandfather No problems noted. Paternal Grandfather No problems noted. Maternal Grandmother No problems noted. Paternal Grandmother No problems noted. Social History Smoking/Tobacco Use Status: Former Tobacco Use tobacco type: cigarettes Quit Date: 09/24/13 Tobacco: How many years used: 48 Second Hand Exposure: Yes Smoking risk assessment performed?: Yes Alcohol Intake: former Drug use: Never Substance use type: does not use Household members: none Housing: apartment Number of Children: 3 Do you need help understanding health information?: Rarely Pets and animals: Yes Pets and animals: dog(s) Sexually active: No Do you think of yourself as: straight/heterosexual Current gender identity: female What is your relationship status?: How often do you talk on the phone with friends or family?: three or more times per week How often do you get together with friends or relatives?: three or more times per week How often do you attend protestant or anglican services?: decline to answer Do you belong to any clubs or organized social groups?: no Panel score (0-1 are the most socially isolated patients): 1 What type of physical activity do you participate in: walking and bicycling Duration: 15-30 minutes/day Frequency: 1-2 times per week Harleen/Caodaism: Pentecostal Special harleen needs: No Seatbelt use: always Helmet use: Yes Helmet use: always Drive intox or ride w/intox 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 Working smoke detector in home: Yes Fire extinguisher in home: Yes Carbon monox detector in home: Yes Do you feel safe at home: Yes Do you feel safe in your relationship?: Yes History History 2 3 Para 3 Hx # Term Pregnancies Multiple births Hx # Pregnancies Ectopic pregnancies AB induced Hx Number of Living Children 3 AB spontaneous Meds Allergies and Home Medications Allergies Allergy/AdvReac Type Severity Reaction Status Date / Time No Known Allergies Allergy Verified 03/04/22 11:35 Home Medications Medication Instructions Recorded Confirmed Type gabapentin 300 mg capsule 300 mg PO TID PRN 02/22/21 05/08/22 History methimazole 5 mg tablet 5 mg PO DAILY #90 tabs 03/24/21 05/08/22 Rx rosuvastatin 5 mg tablet 5 mg PO DAILY #90 tabs 03/24/21 05/08/22 Rx topiramate 50 mg tablet 50 mg PO QHS #90 tabs 08/31/21 05/08/22 Rx bisacodyl 10 mg rectal suppository 10 mg VT daily PRN constipation #2 05/03/22 05/08/22 Rx (Dulcolax (bisacodyl)) supp haloperidol lactate 2 mg/mL oral 1 mg (0.5 mL) PO Q6H PRN agitation 05/03/22 05/08/22 Rx concentrate #15 mL hyoscyamine sulfate 0.125 mg 0.125 - 0.25 mg PO Q4H PRN 05/03/22 05/08/22 Rx disintegrating tablet secretions #24 tabs lorazepam 1 mg tablet 1 mg PO Q4H PRN anxiety, [facility] or 05/03/22 05/08/22 Rx nausea #6 tabs morphine concentrate 100 mg/5 mL 5 - 20 mg (0.25 - 1 mL) PO Q1-4H 05/03/22 05/08/22 Rx (20 mg/mL) oral solution PRN moderate to severe pain or shortness of breath #30 mL prochlorperazine maleate 10 mg 10 mg PO Q6H PRN nausea and 05/03/22 05/08/22 Rx tablet vomiting #6 tabs fentanyl 12 mcg/hr transdermal 1 patch transdermal Q72H #1 ea 05/07/22 05/08/22 Rx patch fentanyl 25 mcg/hr transdermal 1 patch transdermal Q72H #5 ea 05/08/22 05/08/22 Rx patch Exam Const General: cooperative and no acute distress [facility] Head: normal to inspection, normocephalic and atraumatic Ears: hearing grossly normal bilaterally Resp Effort & Inspection: normal respiratory effort, able to speak in complete sentences, no audible wheezes, no cough and not labored Auscultation: clear to auscultation bilaterally and diminished lung sounds Cardio Rate: regular rate Rhythm: regular rhythm Pulses: dorsalis pedis present GI Inspection: distended Palpation: soft and tender (throughout) Auscultation: normal bowel sounds Skin General skin exam: no rashes or lesions noted Neuro General: patient alert, patient awake and patient oriented x3 Cranial Nerves: CN's II-XI intact bilaterally Cognition: normal cognition Speech: speech normal Gait: other (able to self transfer bed to toilet w/no assistance) Extrem General: normal to inspection and no pedal edema Psych Appearance: grossly normal Speech and Movement: speech clear Attitude: cooperative Insight: insight good Judgment: judgment good Results Labs Labs: Laboratory Results - last 24 hr 05/08/22 15:30 COVID-19 Source Nasal/Nares Last Vital Signs Temp 99.5 F 05/08/22 16:04 Pulse 94 H 05/08/22 16:04 Resp 18 05/08/22 16:04 BP 169/102 H 05/08/22 16:04 Pulse Ox 93 05/08/22 16:04
[2022-05-08 18:52] LABS: COVID-19 PCR Negative (Negative)
[2022-05-08 19:30] VITALS: PULSE 110
--- NOTE | 2022-05-08 19:34 | NUR.NOTE ---
2 fentanyl patches removed from bilat upper arm per LIP. Waste witnessed by Clayton Lockhart, honing machine set up operator tool.
[2022-05-08] MEDS: Topiramate 50 MG TAB PO (21:05)
--- NOTE | 2022-05-09 08:23 | CMPROGNOTE_ITS ---
- If Service Date Differs Date of service: 05/09/22 Time of Service: 08:23 Care Management Progress Note S/O: Yaima was sitting up in her chair, her son is sitting next to her. Yaima uses good humor, stating that she's trying to keep her son in line. CM thanked her for her effort. Yaima seems to be in good spirits, she denies pain. Yaima is on Hospice, the goal of this admission is pain control, paracentesis may be discussed for sx relief. A: 71 year old female admitted to [facility] on 05/08/22 for Hospice/Symptom Management. P: Per [facility] Gu[facility] form reviewed, DNR/I, COAT [employer]KER; [facility], son; preference to have sxs mx and be discharged home. CM will follow.
--- NOTE | 2022-05-09 11:45 | CHAPLAIN ---
Yaima was resting in the recliner listening to the Priscilla, the volunteer Netflixc[employer] player, when I arrived. I listened with Yaima for a while, then had a conversation with Yaima after Priscilla left. Yaima said she is more comfortable than when she arrived, and that staff had been working to get her pain controlled. She said has a feeling that she is at the end of her life, and that she's not afraid about that. She explained that she has always believed there is a higher power out there somewhere, I just haven't caught up with it yet. During our conversation said she's okay with not catching up with the higher power because she's always known it was there. I will continue to visit.
[2022-05-09] MEDS: Scopolamine 1 MG/3 DAYS PATCH TD (12:08)
--- NOTE | 2022-05-09 12:57 | W.PM.PROGNOT ---
Date of Service Date of service: 05/09/22 Time of Service: 12:58 Assessment and Plan Assessment and plan (1) Hospice care patient: Status: Acute Assessment and plan: On hospice for Dx: Bx with large mass with extensive retroperitoneal adenopathy and innumerable liver mets, preliminary pathology from Bx showed poorly differentiated carcinoma. She wishes to focus on quality of live over longevity. She was admitted to hospice services on 05/05/22. She remains on Hospice symptom management. She is hoping to discharge home when her Sx are well controlled. She plans to have her daughter, Gay stay with her at home. (2) Liver metastases: Status: Acute Assessment and plan: New diagnosis, at [facility]; decision for no treatment, WINDOWS ARCHIT[employer] (3) Carcinoma: Status: Acute Assessment and plan: As above. (4) UTI (urinary tract infection): Status: Acute Assessment and plan: Yaima agrees with Abx, Keflex day #1. (5) Generalized anxiety disorder: Status: Chronic Assessment and plan: Continue escitalopram for now. Ativan IV PRN ordered (6) Nausea & vomiting: Status: Acute Assessment and plan: Denies today. Has PRN medications ordered. (7) Diarrhea: Status: Acute Assessment and plan: Improved. loperamide 2 mg PRN ordered. WINDOWS ARCHITECT, no IVF (8) Restless: Status: Acute Assessment and plan: trazadone PRN ordered (9) Fatigue: Status: Chronic Qualifiers: Fatigue type: due to depression Qualified Code(s): F32.9 - Major depressive disorder, single episode, unspecified; R53.83 - Other fatigue (10) Cancer related pain: Status: Acute Assessment and plan: Hydromorphone drip IV at 1 mg/hr. She continues to have some pain. She has received bolus x2 today. She is unable to provide pain scale. Tx UTI to see if abd/back pain improves. Consider paracentesis for comfort. (11) Poor appetite: Status: Acute Assessment and plan: She is only eating bites. She has a poor appetite. Subjective Subjective Interval history since last seen: Yaima remains at [facility] for Hospice Sx management. She is currently on IV hydromorphone drip at 1 mg/hr. She has had 2 boluses today. She continues to report low abd and back pain. She is unable to rate her pain on scale of 0-10. She is eating only bites. She denies nausea. She reports that she moved her bowels this morning. She denies diarrhea. She is getting around well with staff assistance. She reports that she recently had a UTI and she thought it may not be resolved. She was unable to state why she felt that way. It is not clear if she is having Sx of UTI. She reports that she has lost weight over the last several months. Her goal is to get back home if Gay is willing to stay with her. She is uncomfortable and having difficulty expressing what is making her feel uncomfortable. Exam Narrative Exam Narrative: General: appears older than stated age, sitting up in the recliner, does not appear to be comfortable. Unable to stay focused on a subject, dozes off at times. HEENT: Normocephalic, atraumatic, EOMI, mucous membranes dry. Neck: Supple, no JVD. Cardiovascular: Heart sounds regular, nontachycardic. Respiratory: Respirations appear even and unlabored, does not appear short of breath, fine Rales noted to bilateral bases. No coughing during visit. GI: +BS, abdomen is firm, distended, tender on palpation. Extremities: Moves all 4 extremities freely, no edema, slightly unsteady gait. Objective Last Vital Signs Temp 37.5 C 05/08/22 16:04 Pulse 110 H 05/08/22 19:30 Resp 18 05/08/22 16:04 BP 169/102 H 05/08/22 16:04 Pulse Ox 93 05/08/22 16:04 Laboratory Results - last 24 hr 05/08/22 15:30 COVID-19 Source Nasal/Nares SARS-CoV-2 (PCR) Negative
[2022-05-09] MEDS: Cephalexin 500 MG CAP PO ×2 (16:14→20:26)
--- NOTE | 2022-05-09 16:45 | CHAPLAIN ---
This afternoon Yaima daughter and two sons are with her. She was in bed, not speaking at the time I was there, and the three children were gathered close to her. One of her son's explained that they are trying to figure out what her wishes are for this journey. She has spoken some with them, and then drifts off, they said. They told me that Yaima was a , and often home alone with her three kids while her was deployed. They said she was a strong woman and a hard worker. 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 I let the family know that student counselor is available for support at any time.
[2022-05-09 16:50] VITALS: BP 122/73; PULSE 98; RESP 12; TEMP 37.6; O2SAT 92
[2022-05-09 16:56] VITALS: TEMP 37.6
[2022-05-09] MEDS: Acetaminophen 325 MG TAB PO (16:56)
[2022-05-10] MEDS: Ondansetron 4 MG/2 ML VIAL IVP (05:37)
[2022-05-10] MEDS: Normal Saline Flush 10 ML SYR IVP ×2 (05:37→20:35)
[2022-05-10] MEDS: LORazepam 20 MG/10 ML VIAL IV/SC ×2 (05:38→20:36)
--- NOTE | 2022-05-10 10:30 | CMPROGNOTE_ITS ---
- If Service Date Differs Date of service: 05/10/22 Time of Service: 10:30 Care Management Progress Note S/O: Yaima was resting comfortably in bed when CM met with her. Her 2 sons and one [id number] were with her at the time. They indicated that Yaima was comfortable and that they are just waiting to hear what the plan is. Yaima is at [facility] as a hospice patient for symptom management. A: 71 year old female admitted to [facility] on 05/08/22 for Hospice/Symptom Management. P: Yaima reamins at [facility] as a hospice patient here for symptom management. She will likely be discharged home when medically cleared by provider.
--- NOTE | 2022-05-10 10:30 | PDOC.CMPRO ---
- If Service Date Differs Date of service: 05/10/22 Time of Service: 10:30 Care Management Progress Note S/O: Yaima was resting comfortably in bed when CM met with her. Her 2 sons and one [id number] were with her at the time. They indicated that Yaima was comfortable and that they are just waiting to hear what the plan is. Yaima is at [facility] as a hospice patient for symptom management. A: 71 year old female admitted to [facility] on 05/08/22 for Hospice/Symptom Management. P: Yaima reamins at [facility] as a hospice patient here for symptom management. She will likely be discharged home when medically cleared by provider.
--- NOTE | 2022-05-10 10:43 | CHAPLAIN ---
Yaima's children are with her this morning. Her son said that Yaima slept soundly until about 4:30 am when she woke up with pain. Her pain meds were adjusted. One son was providing mouth care. Yaima is sitting up in bed. She is responding less today than yesterday, speaking a few words at a time, some it doesn't seem to make sense. She seems to be comfortable. Nursing is checking in on her regularly. I will continue to visit.
--- NOTE | 2022-05-10 12:24 | W.PM.PROGNOT ---
Date of Service Date of service: 05/10/22 Time of Service: 12:24 Assessment and Plan Assessment and plan (1) Poor appetite: Status: Acute Assessment and plan: She is not alert enough to take anything by mouth today. (2) Cancer related pain: Status: Acute Assessment and plan: Pump increased to 1.5 mg/hr early this morning. She appears comfortable. She is minimally responsive. Discussed decreasing rate slightly per request of her children, not unreasonable, especially with dialudid. (3) Hospice care patient: Status: Acute Assessment and plan: continues on symptom management Family discussing whether or not to take her home for end of life care. (4) Carcinoma: Status: Acute Assessment and plan: uncertain primary (5) Dying care: Status: Acute (6) Restless: Status: Acute Assessment and plan: happens at night has PRN lorazepam ordered (7) Delirium due to general medical condition: Status: Acute (8) Fever: Status: Acute Subjective Subjective Interval history since last seen: Yaima was seen in the hospital room with her son, Claude, present in the room and his on speaker phone. Pedro and Gay joined by phone. She is currently on hydromorphone IV drip at 1.5 mg/hr. The rate was increased early this morning. She also had lorazepam early this am. Nursing reports that she is having a hard time swallowing, not taking anything by mouth, only mouth care. Staff report that she is oriented to self. She has not been out of bed today, she has not been alert enough to get OOB. She has not had a BM today. Her son, Claude, verbalized concern that she was over-sedated. He emphasized that he wants her to be comfortable but would prefer if they could talk to her. Discussed that we could decrease the pump dose to see how she does. Clearly she was not comfortable at 1 mg/hr, but perhaps we could decrease slightly. Claude will discuss with his siblings. Also discussed the possibility of taking her home with hospice support. Her children will discuss whether they want to keep her at the hospital on Sx management or if they want to bring her home. Staff to notify hospice of their decision. Exam Narrative Exam Narrative: General: appears comfortable, she is not responsive to verbal or tactile stimuli, slept through the visit. No grimace, no furrowed brow. HEENT: Normocephalic, atraumatic, EOMI, mucous membranes dry. Neck: Supple, no JVD, no LAD Cardiovascular: Heart sounds regular, nontachycardic no murmur appreciated. Respiratory: Respirations appear even and unlabored, does not appear short of breath. No coughing during visit. GI: +BS, abdomen is firm, distended, tender on palpation. Extremities: no mottling, no myoclonus, no edema, Objective Last Vital Signs Temp 37.6 C H 05/09/22 16:56 Pulse 98 H 05/09/22 16:50 Resp 12 05/09/22 16:50 BP 122/73 05/09/22 16:50 Pulse Ox 92 05/09/22 16:50
[2022-05-10] MEDS: HYDROmorphone 50 MG in Normal Saline 245 ML 6.3 MG IV (14:37)
--- NOTE | 2022-05-10 15:56 | CHAPLAIN ---
I checked in with Yaima's family this afternoon while Yaima was sleeping. Her sister, Cherelle, was with her. Family members were talking with medical staff about moving Yaima to [address], a palliative care room with a family waiting room across the [address]. The family believes that Yaima is comfortable and Claude said he and a conversation with Marina Rodriguez, PASHA, about cutting back on pain meds a bit to see if she'd be comfortable still, and a bit more alert at times.
[2022-05-11] MEDS: LORazepam 20 MG/10 ML VIAL IV/SC (05:47)
[2022-05-11 08:40] VITALS: TEMP 38.6
[2022-05-11 09:04] VITALS: TEMP 38.6
[2022-05-11] MEDS: ACETAMINOPHEN 1,000 MG/100 ML BTL 400 MG IVPB ×2 (09:04→20:00)
[2022-05-11] MEDS: Normal Saline Flush 10 ML SYR IVP (09:05)
[2022-05-11 11:00] VITALS: TEMP 38
[2022-05-11 11:26] VITALS: TEMP 37.5
--- NOTE | 2022-05-11 13:03 | PGE_ITS ---
Date of Service Date of service: 05/11/22 Time of Service: 13:03 Assessment and Plan Assessment and plan (1) Poor appetite: Status: Acute Assessment and plan: part of her cancer process (2) Cancer related pain: Status: Acute Assessment and plan: comfortable on hydromorphone at 1.25 mg/hr received on bolus this am (3) Hospice care patient: Status: Acute Assessment and plan: continues on symptom management expect she will stay here until she dies advised family has hours to days to live, less than a week (4) Carcinoma: Status: Acute Assessment and plan: uncertain primary suggested that son Jaime contact her oncology team and see if they ran genetics on her cancer (5) Dying care: Status: Acute Assessment and plan: nurses are attending closely to Yaima's needs she is on comfort measure son is providing oral care handy in place placement officer has been present and helpful (6) Restless: Status: Acute Assessment and plan: happens at night lorazepam working (7) Delirium due to general medical condition: Status: Acute Assessment and plan: explained terminal delirium is normal is she appears frightened, will use haldol to treat symptoms (8) Fever: Status: Acute Assessment and plan: son very clear that his mother doesn't like to be overheated yaima received one dose of IV tylenol to treat her fever though a normal part of dying, he would like it treated nurses aware Subjective Subjective Patient reports: pain is less and fever; denies tolerating liquids well, tolerating a regular diet or bowel movement Interval history since last seen: Yaima was lying in bed. Her son Jaime was present. She looked comfortable. She spoke at first, garbled speech, hard to understand, c/w terminal delirium. she was hot to the touch and flushed, despite having received IV tylenol a few hours before my visit. she is on hydromorphone 1.25 mg/hr she has been receiving lorazepam at night for agitation she is receiving mouth care only urine output has decreased, but she still is putting out > 30 cc/hr Jaime reported some episodes of apnea when she was on higher dose of hydromorphone. none noted today Exam Narrative Exam Narrative: General: appears comfortable, flushed. No grimace, no furrowed brow. Neuro: Minimally responsive for most of visit. Did try to engage when I first walked in. Words did not make sense. Slept through most of visit. HEENT: Normocephalic, atraumatic, EOMI, mucous membranes dry. Neck: Supple, no JVD, no LAD Cardiovascular: Heart sounds regular, nontachycardic no murmur appreciated. Respiratory: Respirations appear even and unlabored, does not appear short of breath, fine Rales noted to bilateral bases. No coughing during visit. GI: +BS, abdomen is firm, distended, tender on palpation. Mass palpable. Extremities: no mottling, no myoclonus, no edema, skin: flushed, no breakdown, no rashes psych no agitation Handy inserted, draining dark yellow urine Objective Last Vital Signs Temp 99.5 F 05/11/22 11:26 Pulse 98 H 05/09/22 16:50 Resp 12 05/09/22 16:50 BP 122/73 05/09/22 16:50 Pulse Ox 92 05/09/22 16:50
--- NOTE | 2022-05-11 16:42 | CHAPLAIN ---
I've checked in with Yaima's family a few times today. Yaima is sleeping, she has responded to some of her family members' voices and last night reacted to the a visit from a childhood friend and reached out to her friend. For the most part Yaima as been sleeping. Her sons, daughter, (and their spouses) and her sister have been staying in the room with Yaima or across the [address] in the family waiting room. They all seem to be very supportive of Yaima and each other, and have taken turns leaving and staying with Yaima. Dr. Andrew told family members that Yaima likely has hours to days to live. The plan is for her to remain here. I will continue to visit.
[2022-05-11 20:00] VITALS: TEMP 39.1
[2022-05-12 05:00] VITALS: TEMP 38.8
[2022-05-12] MEDS: ACETAMINOPHEN 1,000 MG/100 ML BTL 400 MG IVPB ×2 (05:33→15:23)
[2022-05-12 07:56] VITALS: TEMP 38.3
[2022-05-12] MEDS: Normal Saline Flush 10 ML SYR IVP ×3 (10:41→15:28)
[2022-05-12] MEDS: HYDROmorphone 50 MG in Normal Saline 245 ML 6.3 MG IV (10:53)
--- NOTE | 2022-05-12 11:21 | NUR.NOTE ---
Nursing Note: 1121: when documenting on hydromorphone, it is noted that the infusion on the previous bag was ended at 0618 on 05/12/22; the bag hanging did not completely infuse and had hydromorphone running from this same bag until 1053 05/12/22 when a new bag was put up by nursing. tubing and bag placed in to FLIGHT OPERATIONS INSPECTOR/CADD drop box which contained hydromorphone in chamber and in tubing. when new bag hung, new tubing was hung, dated and timed. hydromorphone used to prime new lines. the barcode would not scan, even after attempts with using other scanners and re-orienting of scanner per pharmacy suggestion, hard doc done on medication following discussion with Roselia in pharmacy.
[2022-05-12] MEDS: Scopolamine 1 MG/3 DAYS PATCH TD (11:45)
--- NOTE | 2022-05-12 13:53 | CHAPLAIN ---
I've checked in with Yaima and her family a couple of times today. Yaima was sitting up at one point. She is a bit more responsive today. Her kids are taking turns being with her, with someone spending the night as well. Her younger sister, who lives a [facility], visited today. Her older sister, Cherelle, is here often. Yaima is well supported by family.
--- NOTE | 2022-05-12 14:17 | W.PM.PROGNOT ---
Date of Service Date of service: 05/12/22 Time of Service: 12:00 Assessment and Plan Assessment and plan (1) Delirium due to general medical condition: Status: Acute Assessment and plan: Not frightened by her hallucinations. Using language common at end of life. Family supportive and understanding. (2) Constipation: Status: Acute Assessment and plan: Could be contributing to her pain. Admitted with c/o diarrhea, but no bms since admission. Multiple bowel meds ordered. Methylnaltrexone and po dulcolax added to pre-existing list. Not getting out of bed. Higher risk of constipation given this. Not drinking anything, just mouth care. (3) Fatigue: Status: Chronic Assessment and plan: Awake for only moments per day. Not able to hold a conversation. Qualifiers: Fatigue type: due to depression Qualified Code(s): F32.9 - Major depressive disorder, single episode, unspecified; R53.83 - Other fatigue (4) Dying care: Status: Acute Assessment and plan: Family appreciates help from [facility] nurses and from fire protection inspector. They support each other well. Yaima's biggest symptoms today are her constipation and increased abdominal pain. If she is still having pain after a BM, will increase her CADD pump. (5) Poor appetite: Status: Acute Assessment and plan: no intake other than mouth care (6) Cancer related pain: Status: Acute Assessment and plan: More umcomfortable today. Received a bolus during my presence. Seemed to help. If she has more than 4-5 boluses in a day OR if her abd pain persists after having BM, will increase her hydromorphone to 1.5 mg/hr, and continute to increase by 0.5 mg thereafter until she is comfortable. Subjective Subjective Patient reports: still having pain and fever; denies tolerating a regular diet or bowel movement Interval history since last seen: Seen in her room with son Jaime present, as well as her grandniece. Leila Bansal RN provided nursing report. Yaima is not as flushed as she was. She had a low grade temp this am. Her son brought in a fan and it's blowing on her face and chest, making her feel better. She also received tylenol IV at 0530 today. She has tid dosing available prn. She has not had a bm since admission. She is in more pain today, rubbing her stomach. Unclear how much is exacerbated by constipation. Son is willing for her to try methylnaltrexone and dulcolax suppository. She is still delirious, not able to hold a conversation. She talked about going to the other side and needing to go, which I interpreted as signs of terminal delirium. Exam Narrative Exam Narrative: General: Intermittently comfortable. Occasional grimace and furrowed brow. Rubbing abdomen when in pain. Neuro:. Did try to engage when I first walked in. Words did not make sense. Oriented to self only. HEENT: Normocephalic, atraumatic, EOMI, mucous membranes dry. Neck: Supple, no JVD, no LAD Cardiovascular: Heart sounds regular, nontachycardic no murmur appreciated. Respiratory: Respirations appear even and unlabored, does not appear short of breath, fine rales noted to bilateral bases. No coughing during visit. GI: +BS, abdomen is firm, distended, tender on palpation. Mass palpable. Extremities: no mottling, no myoclonus, no edema, skin: warm to touch but not flushed, no breakdown, no rashes psych: no agitation Bishop inserted, draining dark yellow urine 300 ccs in 5 hrs Objective Last Vital Signs Temp 101 F H 05/12/22 07:56 Pulse 98 H 05/09/22 16:50 Resp 12 05/09/22 16:50 BP 122/73 05/09/22 16:50 Pulse Ox 92 05/09/22 16:50
[2022-05-12] MEDS: Methylnaltrexone 12 MG/0.6 ML VIAL 8 MG SC (14:53)
[2022-05-12] MEDS: LORazepam 20 MG/10 ML VIAL IV/SC (14:55)
[2022-05-13] MEDS: Refresh PLUS Eye Drops 0.4ml OU (02:53)
[2022-05-13] MEDS: LORazepam 20 MG/10 ML VIAL IVP ×2 (03:25→22:00)
[2022-05-13 03:30] VITALS: RESP 12
--- NOTE | 2022-05-13 08:37 | PGE_ITS ---
Date of Service Date of service: 05/13/22 Time of Service: 08:37 Assessment and Plan Assessment and plan (1) Fever: Status: Acute Assessment and plan: on iv tylenol family using cool cloths and fans minimal blankets (2) Delirium due to general medical condition: Status: Acute Assessment and plan: reviewed with family no signs of fear or anxiety explained normal part of dying process (3) Dying care: Status: Acute Assessment and plan: Life expectancy in hours to days. Family very thankful for excellent care from [facility] staff. Yaima will not be transitioning home. (4) Cancer related pain: Status: Acute Assessment and plan: Still not controlled. Will increase hydromorphone to 1.75 mg/hr with 0.5 bolus. (5) Hospice care patient: Status: Acute Assessment and plan: Remains on symptom management. (6) Restless: Status: Acute Assessment and plan: Had to restart lorazepam overnight. Subjective Subjective Patient reports: still having pain, no bowel movement and fever Interval history since last seen: Yaima continues to decline. Her pain has persisted. She has not had a BM despite multiple bowel meds. She's flushed again. She was not able to interact at all today. Family reports she's been reaching, c/w active dying. She was quite restless in the night. I restarted her lorazepam rx. (Had been stopped earlier in the week). She does not appear afraid or agitated this am. She has had nothing to eat or drink since before admission. Exam Narrative Exam Narrative: General: Flushed, hot to touch, but overall comfortable. Occasional grimace and furrowed brow. No observed apnea during my visit. She does whisper words. Impossible to understand. Neuro:. Whispering. Words did not make sense. Oriented to self only. seems to recognize her children. HEENT: Normocephalic, mucous membranes dry. Neck: no JVD, no LAD Cardiovascular: Heart sounds regular, tachycardic HR in the 120s no murmur appreciated. Respiratory: Respirations appear even and unlabored, does not appear short of breath, fine rales noted to bilateral bases. No coughing during visit. GI: +BS, abdomen is firm, tender on palpation. Mass palpable, RUQ tender. Extremities: no mottling, no myoclonus, no edema, strong distal pulses skin: warm to touch flushed, no breakdown, no rashes psych: no agitation, is delirious Bishop inserted, draining dark yellow urine 200 ccs in 12 hrs Objective Last Vital Signs Temp 101 F H 05/12/22 07:56 Pulse 98 H 05/09/22 16:50 Resp 12 05/13/22 03:30 BP 122/73 05/09/22 16:50 Pulse Ox 92 05/09/22 16:50
[2022-05-13] MEDS: Acetaminophen 650 MG SUPP PR (22:09)
[2022-05-13] MEDS: HYDROmorphone 50 MG in Normal Saline 245 ML 8.8 MG IV (22:40)
[2022-05-14] MEDS: Normal Saline Flush 10 ML SYR IVP (02:24)
[2022-05-14] MEDS: LORazepam 20 MG/10 ML VIAL IVP (02:25)
[2022-05-14] MEDS: Refresh PLUS Eye Drops 0.4ml OU (02:28)
[2022-05-14] MEDS: Ondansetron 4 MG/2 ML VIAL IVP (03:25)
--- NOTE | 2022-05-14 04:51 | NUR.NOTE ---
Contacted [employer] [facility] [phone] spoke to Carline. Their lawn care professional will call sunday morning to plan pick and shovel man. Nursing Note:
--- NOTE | 2022-05-14 05:34 | W.PM.DDS ---
Date of service: 05/14/22 Time of Service: 04:00 Discharge Sum: Prov Provider Primary care physician: Shobha Romano Admitting clinician: Mari Ring Attending physician on admission: Jaylene Andrew Discharge Sum: Diag Contributing Factors (1) Fever: (2) Delirium due to general medical condition: (3) Dying care: (4) Cancer related pain: (5) Hospice care patient: (6) Restless: Discharge Sum: Summary Summary Details: Yaima was admitted from 05/08 until her today on 05/14. She was febrile for most of her admission; she was treated with acetaminophen. Her pain was controlled with a hydromorphone pump. She was unable to swallow oral medications. She had constipation after her initial diarrhea on admission. Despite multiple bowel meds, she was unable to have a BM through her last 5 days of life. Her pain was primarily in her abdomen. She did not have any vomiting after her first day. Family was pleased with the care of [facility] senior media buyer, LNAs and nurses, as well as from hospice providers. senior water/wastewater engineer to follow up with family. All of [place]. Additional Data Family: at bedside Attending/PCP notified?: Yes Attending Physician: Jaylene Ring CHEMICAL TECHNICIANMari Was code activated?: No Autopsy requested?: No patents examiner notified?: No Organ bank notified?: Yes Advance directives: Yes Hospice patient?: Yes
--- NOTE | 2022-05-14 05:46 | W.PM.DS.N ---
Date of service: 05/14/22 Time of Service: 05:46 DS: Diagnosis Discharge Diagnosis (1) Fever: Status: Acute (2) Delirium due to general medical condition: Status: Acute (3) Dying care: Status: Acute (4) Cancer related pain: Status: Acute (5) Hospice care patient: Status: Acute (6) Restless: Status: Acute Discharge Plan Disposition Patient Disposition: Discharge Details Reason For Visit: Liver cancer; Hospice symptom management Admit Date/Time: 05/08/22 14:41 Admit Provider: Mari Ring Attending Provider: Mari Ring Primary Care Provider: MILA STERLING Hospital Course Hospital Course: Admitted for symptom management, primarily pain control and terminal agitation/restlessness. Cancer is of unknown primary, with extensive liver mets. Liver was biopsied. Poorly differentiated, very aggressive cancer found. Dr Serjio Rivera from [facility] met with patient and family. No cancer-directed treatment initiated. Yaima came on hospice and soon after being admitted at her home, her symptoms became too difficult for her family to control. She was admitted to [facility] for symptom management. (GIP). She was started on a hydromorphone pump. This was slowly increased; she was still on relatively low dose at the time of her at 03:55 today, May 14. Family was in attendance throughout her stay. Her three children were very attentive, loving and supportive of each other. At the time of her , she was comfortable. Her daughter Gay was staying in her room with her. I will notify hospice team of her . DS: Summary Time Spent with Patient providing and/or coordinating discharge services: Less than 30 minutes Status at Discharge Functional status at discharge: bed bound Overall status at discharge: patient is not back to baseline Mental Status: other Speech and Movement: other Mood: other Affect: other Exam Psych Mental Status: other Speech and Movement: other Mood: other Affect: other DS: Data Vitals/I&O Vitals and I&O: Vital Signs Temperature 101 F H 05/12/22 07:56 Temperature Source Tympanic 05/11/22 11:26 Pulse 98 H 05/09/22 16:50 Pulse Rhythm Regular 05/09/22 16:37 Respiratory Rate 12 05/13/22 03:30 Respiratory Effort Non-Labored 05/09/22 16:37 Respiratory Depth Normal 05/09/22 16:37 Respiratory Pattern Normal 05/09/22 16:37 Blood Pressure 122/73 05/09/22 16:50 Pulse Oximetry 92 05/09/22 16:50 Oxygen Delivery Method Room Air 05/13/22 08:00 Oxygen Flow Rate 0 05/13/22 08:00 Pain Level 0 05/13/22 09:25 Comment 05/12/22 07:56 Intake & Output 05/13/22 05/13/22 05/14/22 11:59 23:59 11:59 Intake Total 0 / 0 0 / 0 47.507 / 47.507 Output Total 500 / 700 200 / 700 Balance -500 / -700 -200 / -700 47.507 / 47.507 Intake: IV 0 / 0 47.507 / 47.507 Oral 0 / 0 Output: Urine 500 / 700 200 / 700 Other: Urine Color Dark Monica Dark Monica Urine Appearance Cloudy Clear PFSH All Active Problems Constipation (Acute) Fever (Acute) Delirium due to general medical condition (Acute) terminal Dying care (Acute) Poor appetite (Acute) Cancer related pain (Acute) abdominal Hospice care patient (Acute) Restless (Acute) in the evening primarily Nausea & vomiting (Acute) Dysuria (Acute) Sent home from [facility] on ABx (completed 05/02/22, but urin burning and dysuria reported). UA [ ] Liver metastases (Acute) Per pt report: 04/25/22, [facility]: Abd mass could not be Bx. Liver was Bx. Carcinoma (Acute) Per pt report, 04/25/22 Dx @ [facility] .. Large abd mass could not be biopsied; liver Bx (?). Chronic daily headache (Acute) Osteopenia (Chronic) Dexa 03/2021 Hyperthyroidism (Chronic) Hyperlipidemia (Chronic) Thrombocytosis (Chronic) [facility] Hematology Fatigue (Chronic) Primary generalized (osteo)arthritis (Chronic) No rheumatologic disorder per [facility] Rheumatology Functional diarrhea (Chronic) Collagenous colitis (Chronic) Followed by [facility] Major depressive disorder (Chronic) Generalized anxiety disorder (Chronic) Osteoporosis (Chronic) Medical History Essential hypertension History of retinal detachment Leb Opth- left post macular hole, both eyes and Lensectomy 2017 Iron deficiency anemia Left retinal detachment Macular hole of both eyes S/p surgery, OD 2014, OS 2016 Surgical History S/P excision of fibroadenoma of breast Left breast S/P right rotator cuff repair Family History Mother , at 82 Heart disease Diabetes Hypertension Breast cancer Postmenopausal Asthma Hyperlipidemia Hyperthyroidism Father , from MVA No problems noted. Sister Hyperlipidemia Hypothyroidism Sister Alcohol abuse Depression Heart disease Stroke Substance abuse Brother Hyperlipidemia Asthma Son No problems noted. Son Celiac disease Hyperthyroidism Daughter No problems noted. Maternal Grandfather No problems noted. Paternal Grandfather No problems noted. Maternal Grandmother No problems noted. Paternal Grandmother No problems noted. Social History Smoking/Tobacco Use Status: Former Tobacco Use tobacco type: cigarettes Quit Date: 09/24/13 Tobacco: How many years used: 48 Second Hand Exposure: Yes Smoking risk assessment performed?: Yes Alcohol Intake: former Drug use: Never Substance use type: does not use Household members: none Housing: apartment Number of Children: 3 Do you need help understanding health information?: Rarely Pets and animals: Yes Pets and animals: dog(s) Sexually active: No Do you think of yourself as: straight/heterosexual Current gender identity: female What is your relationship status?: How often do you talk on the phone with friends or family?: three or more times per week How often do you get together with friends or relatives?: three or more times per week How often do you attend latter day or bahai services?: decline to answer Do you belong to any clubs or organized social groups?: no Panel score (0-1 are the most socially isolated patients): 1 What type of physical activity do you participate in: walking and bicycling Duration: 15-30 minutes/day Frequency: 1-2 times per week Harleen/Zoroastrian: Spiritism Special harleen needs: No Seatbelt use: always Helmet use: Yes Helmet use: always Drive intox or ride w/intox ups driver: Yes Working smoke detector in home: Yes Fire extinguisher in home: Yes Carbon monox detector in home: Yes Do you feel safe at home: Yes Do you feel safe in your relationship?: Yes History History 3 Para 3 Hx # Term Pregnancies Multiple births Hx # Pregnancies Ectopic pregnancies AB induced Hx Number of Living Children 3 AB spontaneous
--- NOTE | 2022-05-14 06:31 | NUR.NOTE ---
Marnie at [facility] states she will report to Carline at [facility] that the pt is now ready for metal pickling equipment operator, they understand that pickup will need to happen today. Nursing Note:
== END 2022-05-14 03:58 | disposition expired | DRG 948 ==
PROVIDERS: Admitting Provider Nurse Practitioner Family; PCP Nurse Practitioner Family; Visit Provider Nurse Practitioner Family
DX: G89.3 Neoplasm related pain (acute) (chronic) (principal); C78.7 Secondary malignant neoplasm of liver and intrahepatic bile duct; N39.0 Urinary tract infection, site not specified; F05 Delirium due to known physiological condition; Z51.5 Encounter for palliative care; C80.1 Malignant (primary) neoplasm, unspecified; F41.1 Generalized anxiety disorder; R11.2 Nausea with vomiting, unspecified; R19.7 Diarrhea, unspecified; R45.1 Restlessness and agitation; R53.83 Other fatigue; Z66 Do not resuscitate; R63.0 Anorexia; R50.9 Fever, unspecified; K59.00 Constipation, unspecified; R10.84 Generalized abdominal pain
CPT/HCPCS: 87635; J0131; J1170; J2405; J3490